=== PATIENT | female | born 2000 | race American Indian/Alaskan Native ===

== ENCOUNTER 2019-01-26 23:33 | Emergency (ER) | payer MEDICAID, OTHER ==
[2019-01-27] MEDS ORDERED: PERCOCET 5/325 PO ONE (02:59)
--- NOTE | 2019-01-27 03:11 | Emergency Department Report ---
Abscess Boil HPI - HPI Chief Complaint: Skin/Abscess/Foreign Body Stated Complaint: VAGINAL BOIL Time Seen by Provider: 01/27/19 02:05 History: Yes Pain, Yes Previous History, No Fever, No Purulent Drainage, No Numbness, No Foreign Body, No Insect Bite HPI: 18-year-old -[place] female presents to the emergency room complaining of pole to her vaginal area that she noticed today. Patient reports that she soaked in a warm tab in the bowl progressively has gotten worse. Patient denies any vaginal discharge she reports that she is currently on her menses at this moment. Home Medications: Previous Rx's Medication Instructions Recorded Last Taken Type Cephalexin [Keflex] 500 mg PO BID #20 capsule 01/27/19 Unknown Rx Ibuprofen [Motrin 800 MG tab] 800 mg PO Q8HR PRN #30 tablet 01/27/19 Unknown Rx Allergies/Adverse Reactions: Allergies Allergy/AdvReac Type Severity Reaction Status Date / Time No Known Allergies Allergy Unverified 05/25/15 23:01 ED Review of Systems ROS: Stated complaint: VAGINAL BOIL Other details as noted in HPI Comment: All other systems reviewed and negative ED Past Medical Hx - Past Medical History Previous Medical History?: No - Surgical History Past Surgical History?: No - Social History Smoking Status: Never Smoker Substance Use Type: None - Medications Home Medications: Home Medications Medication Instructions Recorded Confirmed Last Taken Type Cephalexin [Keflex] 500 mg PO BID #20 capsule 01/27/19 Unknown Rx Ibuprofen [Motrin 800 MG tab] 800 mg PO Q8HR PRN #30 tablet 01/27/19 Unknown Rx ED Abscess Boil Physical Exam - Exam General: Vital signs noted. No distress. Alert and acting appropriately. Size: 4 cm Exam: Yes Tenderness, Yes Fluctuance, Yes Normal Neurologic Exam, Yes Normal Circulation, No Surrounding Cellulites/Erythema, No Lymphangitis, No Crepitation, No Heart Murmur I & D Note - I & D Note I & D Note: DATE OF PROCEDURE: . PREOPERATIVE DIAGNOSES: 1.soft tissue infection perineal abscess. . POSTOPERATIVE DIAGNOSES: Perineal abscess. 1. 2. .........soft tissue infection. Infection appeared to be contained to subcutaneous tissue and there was no evidence of necrotizing soft tissue infection including myonecrosis. OPERATION PERFORMED: Incision and drainage of ..... soft tissue abscess. Provider: Paul Márquez PA-C. ANESTHESIA: Local. DESCRIPTION OF PROCEDURE: The patient was prepped and draped. Seropurulent, somewhat bloody fluid was noted. The infection appeared contained to a golf ball-sized area in the subcutaneous tissues above the fascia. There was no evidence of myonecrosis, penetration of the fascia or significant extent along the fascia of the infection. We cleaned the area with Betadine and then packed the wound .......... Dry dressings were applied. The patient appeared to tolerate the procedure well. ED Course Vital Signs 01/27/19 00:04 Temperature 97.9 F Pulse Rate 117 H Respiratory 18 Rate Blood Pressure 156/67 O2 Sat by Pulse 99 Oximetry Critical care attestation.: If time is entered above; I have spent that time in minutes in the direct care of this critically ill patient, excluding procedure time. ED Disposition Clinical Impression: Cutaneous abscess of perineum Disposition: DC-01 TO HOME OR SELFCARE Is pt being admited?: No Does the pt Need Aspirin: No Condition: Stable Instructions: Abscess (ED), Abscess Incision and Drainage (ED) Additional Instructions: Complete antibiotics as prescribed. Pain medication as needed. Return back in 2 days to have dressing changed. Prescriptions: Cephalexin [Keflex] 500 mg PO BID #20 capsule Ibuprofen [Motrin 800 MG tab] 800 mg PO Q8HR PRN #30 tablet PRN Reason: Pain Referrals: LINDY HENDERSON MD [Primary Care Provider] - 3-5 Days Forms: Work/School Release Form(ED)
[2019-01-27 04:24] VITALS: BP 145/65
== END 2019-01-27 04:24 | disposition home or self-care (01) ==
LOC: ED 23:33
DX: L02.215 Cutaneous abscess of perineum (principal)
CPT/HCPCS: 87116; 99282